=== PATIENT | male | born 2000 | race Caucasian/White ===

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

== ENCOUNTER 2021-08-27 21:06 | Emergency (ER) | payer BC, SELFPAY ==
[2021-08-27 21:07] VITALS: BP 125/76; PULSE 95; RESP 16; TEMP 37.2; O2SAT 100; BMI 23.0
--- NOTE | 2021-08-27 21:39 | XR_ITS ---
PROCEDURE INFORMATION: Exam: XR Chest Exam date and time: 08/27/2021 9:39 PM Age: 21 years old Clinical indication: Cough TECHNIQUE: Imaging protocol: XR of the chest. Views: 2 views. COMPARISON: CR XR SHOULDER RT MIN 2V 03/24/2019 7:44 PM FINDINGS: Lungs: Airspace opacity at the posteromedial left lung base. Pleural spaces: Unremarkable. No pleural effusion. No pneumothorax. Heart/Mediastinum: Unremarkable. No cardiomegaly. Bones/joints: Unremarkable. IMPRESSION: Airspace opacity at the left lung base.
--- NOTE | 2021-08-27 21:40 | CT_ITS ---
PROCEDURE INFORMATION: Exam: CT Abdomen And Pelvis Without Contrast Exam date and time: 08/27/2021 9:40 PM Age: 21 years old Clinical indication: Abdominal pain; Additional info: Back pain TECHNIQUE: Imaging protocol: Computed tomography of the abdomen and pelvis without contrast. Radiation optimization: All CT scans at this facility use at least one of these dose optimization techniques: automated exposure control; mA and/or kV adjustment per patient size (includes targeted exams where dose is matched to clinical indication); or iterative reconstruction. COMPARISON: CR XR CHEST 2V 08/27/2021 9:39 PM FINDINGS: Lungs: Patchy consolidation at the left lung base. Calcified granuloma at the right lung base. Liver: Parenchymal enhancement is not evaluated without contrast. No hepatomegaly. Gallbladder and bile ducts: No calcified stones. No ductal dilation. Pancreas: Parenchymal enhancement is not evaluated without contrast. No ductal dilation. Spleen: Parenchymal enhancement is not evaluated without contrast. No splenomegaly. Adrenal glands: No mass. Kidneys and ureters: Parenchymal enhancement is not evaluated without contrast. No hydronephrosis. Stomach and bowel: No obstruction. No mucosal thickening. Appendix: No evidence of appendicitis. Intraperitoneal space: No free air. No significant fluid collection. Vasculature: Limited evaluation without contrast. No abdominal aortic aneurysm. Lymph nodes: No enlarged lymph nodes. Urinary bladder: No acute abnormality. Reproductive: No acute abnormality. Bones/joints: No acute fracture. Soft tissues: Limited evaluation without contrast. No significant soft tissue swelling. IMPRESSION: Patchy consolidation at the left lung base which may be secondary to pneumonia. Consider continued follow-up to clearance to ensure resolution.
[2021-08-27 21:59] LABS: Microscopic, Urine URINE MICROSCOPIC (MICROSCOPIC)
[2021-08-27 21:59] LABS: Coronavirus 19, PCR Not Detected (NotDetected); Influenza A, PCR Not Detected (NotDetected); Influenza B, PCR Not Detected (NotDetected)
[2021-08-27 21:59] LABS: Basophils % 0.4 % (0.1-2.0); Hematocrit 48.7 % (42.0-52.0); Lymphocytes # 0.6 K/mm3 (0.7-4.5); Lymphocytes % 6.5 % (10-50); Mean Corpuscular HGB Conc 32.9 g/dL (31.8-35.4); Mean Corpuscular Hemoglobin 30.6 pg (27.0-31.2); Mean Platelet Volume 7.3 fl (7.4-10.4); Monocytes # 0.3 K/mm3 (0.1-1.0); Neutrophils # 8.4 K/mm3 (1.8-7.8); Neutrophils % 90.1 % (37.0-80.0); Platelet Count 220 K/mm3 (142-424); Red Blood Count 5.24 M/mm3 (4.60-6.20); Red Cell Distribution Width 14.1 % (11.5-17.5); White Blood Count 9.3 K/mm3 (4.8-10.8)
[2021-08-27 22:01] LABS: Appearance,Urine SL CLOUDY (Clear); Blood, Urine Negative (Negative); Color,Urine ORANGE (Yellow); Glucose,Urine (UA) Negative (Negative); Ketones,Urine Negative (Negative); Leukocyte Esterase,Urine Negative (Negative); Nitrate,Urine Negative (Negative); PH,Urine 6.5 (5.0-8.5); Protein,Urine 1+ (Negative); Specific Gravity, Urine 1.025 (1.005-1.030)
[2021-08-27 22:03] LABS: Bilirubin,Urine 2+ (Negative)
[2021-08-27 22:03] LABS: Amylase 36 U/L (30-110); Lipase 22 U/L (23-300); MANUAL DIFFERENTIAL MANUAL DIFFERENTIAL (MANUAL DIFF)
[2021-08-27 22:08] LABS: C-Reactive Protein 130.6 mg/L (0-4)
[2021-08-27 22:14] LABS: Bacteria,Urine 2+ /lpf; Mucus,Urine 4+ /lpf; Squamous Epithelial Cell,Urine Occasional #/hpf (0-5)
[2021-08-27 22:22] LABS: Procalcitonin 1.73 ng/mL (0.0-2.0)
--- NOTE | 2021-08-27 22:23 | CT_ITS ---
PROCEDURE INFORMATION: Exam: CTA Chest With Contrast Exam date and time: 08/27/2021 10:23 PM Age: 21 years old Clinical indication: Other: Coughing blood TECHNIQUE: Imaging protocol: Computed tomographic angiography of the chest with contrast. 3D rendering (Not supervised by radiologist): MIP and/or 3D reconstructed images were created by the technologist. Radiation optimization: All CT scans at this facility use at least one of these dose optimization techniques: automated exposure control; mA and/or kV adjustment per patient size (includes targeted exams where dose is matched to clinical indication); or iterative reconstruction. Contrast material: ISOVUE; Contrast volume: 70 ml; Contrast route: INTRAVENOUS (IV); COMPARISON: CR XR CHEST 2V 08/27/2021 9:39 PM FINDINGS: Pulmonary arteries: Normal. No pulmonary emboli. Aorta: No aortic aneurysm. No aortic dissection. Lungs: Mild apical emphysema. Debris within lower lobe bronchials bilateral with ground-glass nodular airspace opacities and more confluent rounded opacities within left upper and lower lobes. Pleural spaces: No pneumothorax. No pleural effusion. Heart: No cardiomegaly. No pericardial effusion. Lymph nodes: Partially calcified hilar lymph nodes which can be seen with prior granulomatous disease. Bones/joints: No acute fracture. Soft tissues: No significant swelling. IMPRESSION: Debris within lower lobe bronchials with bilateral ground-glass nodular airspace opacities and more confluent rounded opacities within left upper and lower lobes which are nonspecific but potentially infectious or inflammatory would be compatible with provided history of hemorrhage. Follow-up to radiographic clearance is recommended.
--- NOTE | 2021-08-27 22:23 | HMH.EDSOB ---
ED Disposition Clinical Impression: CAP (community acquired pneumonia) Qualifiers: Laterality: left Lung location: lower lobe of lung Qualified Code(s): J18.9 - Pneumonia, unspecified organism Disposition: Home, Self-Care Condition on Discharge: Good Instructions: DI for Pneumonia -- Adult Additional Instructions: use meds and see pcp and produce sorter Prescriptions: levoFLOXacin [Levaquin 500mg tab] 500 mg PO DAILY #7 tab Transmission Status: Pending to [id number] [place] [facility] predniSONE [Prednisone 20mg Tab] 20 mg PO BID #10 tab Transmission Status: Pending to [id number] [place] [facility] Referrals: Alvaro Joshua MD [Primary Care Provider] - Tip Ramos MD [Physician] - - Critical Care Critical Care Time: No Attestation: On 08/27/21, the high probability of a clinically significant, sudden or life threatening deterioration of the following system(s) required my full and direct attention, intervention and personal management. The time I documented below is in addition to time spent performing reported procedures but includes the following listed in this critical care notation. Medical Decision Making - Medical Records Medical records reviewed: Yes: I reviewed the patient's medical records. - Ankit Inquiry Pt receiving controlled substance: No Vital Signs: 08/27/21 21:07 Temperature 98.9 F Temperature Source Oral Pulse Rate [Left] 95 H Respiratory Rate 16 Blood Pressure [Right Arm] 125/76 Blood Pressure Mean [Right Arm] 92 02 Sat by Pulse Oximetry 100 Oxygen Delivery Method Room Air - Lab Data Lab results reviewed: Yes: I reviewed the patient's lab results. Lab Results 08/27/21 21:14: SARS-CoV-2 (PCR) Not detected, Influenza A Untype (PCR) Not detected, Influenza Type B (PCR) Not detected 08/27/21 21:17: Urine Color [place], Urine Appearance Sl cloudy, Urine pH 6.5, Ur Specific [place] 1.025, Urine Protein 1+, Urine Glucose (UA) Negative, Urine Ketones Negative, Urine Blood Negative, Urine Nitrate Negative, Urine Bilirubin 2+ A, Urine Urobilinogen 1.0, Ur Leukocyte Esterase Negative, Urine WBC 3-5, Ur Squamous Epith Cells Occasional, Urine Bacteria 2+, Urine Mucus 4+ 08/27/21 21:19: WBC 9.3, RBC 5.24, Hgb 16.0, Hct 48.7, MCV 93.0, MCH 30.6, MCHC 32.9, RDW 14.1, Plt Count 220, MPV 7.3 L, Neut % (Auto) 90.1 H, Lymph % (Auto) 6.5 L, Real % (Auto) 3.0, Eos % (Auto) 0.0 L, Baso % (Auto) 0.4, Neut # (Auto) 8.4 H, Lymph # (Auto) 0.6 L, Real # (Auto) 0.3, Eos # (Auto) 0.0, Baso # (Auto) 0.0, Total Counted 100, Neutrophils % (Manual) 59, Band Neutrophils % 26.0 H, Lymphocytes % (Manual) 13, Monocytes % (Manual) 2, Platelet Estimate Normal, RBC Morphology Normal, ESR 9 08/27/21 21:19: C-Reactive Protein 130.6 H, Amylase 36, Lipase 22 L, Procalcitonin 1.73 08/27/21 21:19: Sodium 137, Potassium 4.0, Chloride 100, Carbon Dioxide 29, Anion Gap 12.0, BUN 12, Creatinine 0.80, Estimated Creat Clear 153, Estimated GFR 121, Est GFR ( Amer) 146, Glucose 114 H, Calcium 9.6, Total Bilirubin 1.3, AST 28, ALT 31, Alkaline Phosphatase 30 L, Total Protein 7.5, Albumin 4.6, Globulin 2.9, Albumin/Globulin Ratio 1.6 Result diagrams: 08/27/21 21:19 08/27/21 21:19 Orders (Tests/Meds): ED MEDICATIONS Generic Name Dose Route Start Last Admin Trade Name Freq PRN Reason Stop Dose Admin Sodium Chloride 1,000 mls @ 999 mls/hr 08/27/21 21:45 08/27/21 21:47 Sod Chlor 0.9% 1000ml Bag IV 08/27/21 22:45 999 mls/hr .Q1H1M MIRIAM Administration Ceftriaxone Sodium 1 gm/ 50 mls @ 100 mls/hr 08/27/21 23:30 Sodium Chloride IV 09/10/21 23:29 Q24H MIRIAM Discontinued Medications Generic Name Dose Route Start Last Admin Trade Name Freq PRN Reason Stop Dose Admin Iopamidol 70 ml 08/27/21 22:42 08/27/21 22:43 Iopamidol-370 (76%);100ml Bottle IV 08/27/21 22:43 70 ml ONCE ONE Administration Ketorolac Tromethamine 30 mg 08/27/21 21:40 08/27/21 21:47 Ketorolac 30mg/Ml
[2021-08-27 22:29] LABS: Erythrocyte Sedimentation Rate 9 mm/hr (0-15)
[2021-08-27 22:32] LABS: Chloride 100 mmol/L (98-107); Sodium 137 mmol/L (136-145)
[2021-08-27 22:34] LABS: Blood Urea Nitrogen 12 mg/dl (9-20); Creatinine Clearance Estimated 153 mL/min (50-200); Estimated Glomerular Filt Rate 121 ml/min (>60); GFR (African American) 146 ML/MIN (>60); Lymphocytes % 13 % (10-50); Monocytes % 2 % (2-9); Neutrophils % 59 % (42-76); Platelet Estimate Normal; RBC Morphology Normal; Total Cells Counted 100
[2021-08-27 22:35] LABS: Alanine Aminotransferase 31 U/L (12-78); Albumin Level 4.6 g/dl (3.5-5.0); Albumin/Globulin Ratio 1.6 (1.1-1.8); Alkaline Phosphatase 30 U/L (38-126); Aspartate Amino Transferase 28 U/L (17-59); Bilirubin,Total 1.3 mg/dl (0.2-1.3); Calcium 9.6 mg/dl (8.4-10.2); Carbon Dioxide 29 mmol/L (22.0-30.0); Globulin 2.9 g/dL (1.3-3.2); Glucose 114 mg/dl (74-100); Total Protein,Serum 7.5 g/dl (6.3-8.2)
[2021-08-27 23:30] VITALS: BP 110/75; PULSE 115; RESP 20; TEMP 37.2; O2SAT 99
== END 2021-08-27 23:40 | disposition home or self-care (01) ==
PROVIDERS: Emergency Provider Emergency Medicine; PCP Internal Medicine Adolescent Medicine
DX: J18.9 Pneumonia, unspecified organism (principal)
CPT/HCPCS: 71046; 71275; 74176; 80053; 81001; 82150; 83690; 84145; 85007; 85025; 85651; 86140; 87086; 96365; 96375; 99283; C9803; J0696; J2405; Q9967; U0003; U0005

== ENCOUNTER 2023-04-07 08:01 | Emergency (ER) | payer BC, SELFPAY ==
[2023-04-07 08:10] VITALS: BP 128/79; PULSE 66; RESP 18; TEMP 36.6; O2SAT 99; BMI 24.3
--- NOTE | 2023-04-07 08:13 | XR_ITS ---
FINAL REPORT CLINICAL HISTORY: pain FINDINGS: Left ankle Three views were obtained. There is no acute fracture or dislocation. The joint spaces appear normal. There is soft tissue swelling about the ankle. There is a small well corticated ossific density inferior to the lateral malleolus. IMPRESSION: No acute process. Reviewed, Interpreted and Dictated by Faraz Angel MD Transcribed by Laurie Aguilar Authenticated and [facility]
--- NOTE | 2023-04-07 08:13 | XR_ITS ---
FINAL REPORT CLINICAL HISTORY: pain FINDINGS: Left foot Three views were obtained. There is no acute fracture or dislocation. The joint spaces appear normal. No soft tissue abnormality is identified. IMPRESSION: No acute process. Reviewed, Interpreted and Dictated by Faraz Angel MD Transcribed by Laurie Aguilar Authenticated and [facility]
--- NOTE | 2023-04-07 08:24 | EXP.UTC ---
Discharge Plan Disposition Patient Disposition: Home, Self-Care Condition: Good Prescriptions Prescriptions: New ibuprofen [IBU] 800 mg tablet 800 mg PO Q8HP PRN (Reason: Moderate Pain) Qty: 30 0RF Referrals Follow up/Referrals: Alvaro Joshua MD [Primary Care Provider] - See instructions Activity Restrictions/Add. Instructions Additional Instructions/Restrictions: Rest the extremity, Elevate the extremity as tolerated while you are resting. Take ibuprofen for pain. I sent in a prescription to your pharmacy. Follow up with Dr. Moore (podiatry). I put in a referral but you need to call her office and schedule an appointment. Follow up with your regular doctor. GO TO THE ER FOR ANY WORSENING SYMPTOMS Clinical Impressions Clinical Impression: Left ankle tendonitis, Ankle pain, left Stand Alone Forms Stand Alone Forms: Work/School Release Instructions Patient Instructions: DI for Ankle Pain, DI for Foot Pain Discharge ED Provider: Mehdi Vargas [facility] General Stated complaint: left ankle pain, no accident Mode of Arrival: Ambulatory Source of Information: Patient Limitations: No Limitations Time Seen by Provider: 04/07/23 08:24 Description of Symptoms (Recalled from Triage Doc. by RN): PATIENT C/O SWELLING AND PAIN TO LEFT HEEL AREA AND ANKLE X 1 WEEK, NO KNOWN INJURY HEENT Symptoms (Recalled from RN notes): No Resp Symptoms (Recalled from RN notes): No Skin Symptoms (Recalled from RN notes): No MS Symptoms (Recalled from RN notes): Yes Functional Status (Recalled from RN notes): WNL History of Present Illness Provider Complaint: He states that for the past 1 week he has had left ankle pain. He denies any injury. He states that walking on the foot makes his symptoms worse. Related Data Previous Rx's Medication Instructions Recorded ibuprofen 800 mg tablet (IBU) 800 mg PO Q8HP PRN Moderate Pain 04/07/23 #30 tabs Allergies Allergy/AdvReac Type Severity Reaction Status Date / Time No Known Allergies Allergy Verified 08/31/21 15:29 Worker's Comp Is this a Worker's Comp case?: No [facility] Disclaimer: The information contained in this section may have been updated after the patient was seen, as this information can be updated by other users. Medical History (Updated 04/07/23 @ 08:57 by Mehdi Vargas APRN) No significant past medical history Social History Smoking Status: Never smoker alcohol intake: never current occupational status: employed Travel in the last 8 weeks: None ROS Obtained: Yes All systems reviewed & no additional complaints except as documented Constitutional Constitutional: Denies chills and Denies fever(s) Eyes Eyes: Denies eye discharge ENT Ears, Nose, Mouth, and Throat: Denies dizziness, Denies otalgia and Denies sore throat Cardiovascular Cardiovascular: Denies chest pain Respiratory Respiratory: Denies shortness of breath, Denies chest congestion, Denies cough, Denies stridor and Denies wheezing Gastrointestinal Gastrointestingal: Denies nausea or vomiting Musculoskeletal Musculoskeletal: Reports as per HPI Integumentary/Breasts Skin/Breast: Denies rash Neurologic Neurologic: Denies dizziness and Denies paresthesias Allergic/Immunologic Allergic/Immunologic: Denies wheezing Physical Exam General General appearance: alert and in no apparent distress Head Head exam: atraumatic, normocephalic and normal inspection Eye Eye exam: Present normal appearance, PERRL and EOMI ENT ENT exam: Present normal exam, normal oropharynx, mucous membranes moist, TM's normal bilaterally and normal external ear exam Neck Neck exam: Present normal inspection, full ROM and trachea midline; Absent meningismus or lymphadenopathy Chest Chest inspection: Present normal inspection and symmetric chest wall rise; Absent tenderness Respiratory Respiratory exam: Present normal lung sounds bilaterally; Abs
[2023-04-07 08:59] VITALS: BP 128/79; PULSE 66; RESP 18; TEMP 36.6; O2SAT 99
== END 2023-04-07 09:01 | disposition home or self-care (01) ==
PROVIDERS: Emergency Provider Nurse Practitioner Family; PCP Internal Medicine Adolescent Medicine
DX: M77.52 Other enthesopathy of left foot and ankle (principal); M25.572 Pain in left ankle and joints of left foot
CPT/HCPCS: 73610; 73630; 99204; 99212; 99214; G0463

== ENCOUNTER 2024-06-09 15:52 | Emergency (ER) | payer BC, SELFPAY ==
--- NOTE | 2024-06-09 15:58 | XR_ITS ---
PROCEDURE INFORMATION: Exam: XR Left Wrist Exam date and time: 06/09/2024 4:41 PM Age: 23 years old Clinical indication: Injury or trauma; Fall; Blunt trauma (contusions or hematomas); Wrist; Left; Additional info: Fell off a ladder TECHNIQUE: Imaging protocol: Radiologic exam of the left wrist. Views: 3 or more views. Frontal Oblique Lateral COMPARISON: CR XR HAND LT MIN 3V 06/09/2024 4:40 PM FINDINGS: Bones/joints: Comminuted fractures are identified within the distal metadiaphysis of the left radius. Fractures do not clearly involve the distal articular surface. Distal radius fragment demonstrates anterior bony displacement measuring 5 mm. Adjacent edema. Fracture is identified within the ulnar styloid. Bony displacement measures 2 mm. Mild adjacent edema. Bony structures appear otherwise unremarkable. Soft tissues: Soft tissue edema surrounds the distal forearm and left wrist region. The soft tissues appear otherwise unremarkable. Notes: If there is further concern, followup radiographs or MRI of the wrist may be performed for complete assessment. IMPRESSION: 1. Comminuted fractures involving the distal radius, as described above. 2. Fracture involving the ulnar styloid, as described above. 3. Soft tissue edema.
--- NOTE | 2024-06-09 15:58 | XR_ITS ---
PROCEDURE INFORMATION: Exam: XR Left Elbow Exam date and time: 06/09/2024 4:54 PM Age: 23 years old Clinical indication: Injury or trauma; Fall; Blunt trauma (contusions or hematomas); Elbow; Left; Additional info: Fell off a ladder TECHNIQUE: Imaging protocol: Radiologic exam of the left elbow. Views: 3 or more views. AP Oblique Lateral COMPARISON: CR XR FOREARM LT 2V 06/09/2024 4:54 PM FINDINGS: Bones/joints: Limited assessment of the elbow on the lateral view with oblique positioning. This limits assessment for potential fracture, joint effusion. No visualized evidence for acute bony fracture or dislocation. Bony structures appear otherwise unremarkable. Soft tissues: The soft tissue appear unremarkable. Notes: If there is further concern, recommend follow-up radiographs or MRI for complete assessment. IMPRESSION: No acute abnormality identified.
--- NOTE | 2024-06-09 15:58 | XR_ITS ---
PROCEDURE INFORMATION: Exam: XR Left Forearm Exam date and time: 06/09/2024 4:54 PM Age: 23 years old Clinical indication: Injury or trauma; Fall; Blunt trauma (contusions or hematomas); Arm, lower; Left; Additional info: Fell off a ladder TECHNIQUE: Imaging protocol: Radiologic exam of the left forearm. Views: 2 views. Frontal and lateral COMPARISON: CR XR WRIST LT MIN 3V 06/09/2024 4:41 PM FINDINGS: Bones/joints: Comminuted fractures are identified within the distal radius metadiaphysis. Bony displacement measures up to 5 mm. Adjacent edema. No definite involvement of the distal articular surface. Fracture is identified within the ulnar styloid. Bony displacement measures 2-3 mm. Mild adjacent edema. Bony structures appear otherwise unremarkable. Soft tissues: The soft tissues appear otherwise unremarkable. Notes: If there is further concern, recommend follow-up radiographs for complete assessment. IMPRESSION: 1. Comminuted fractures involving the distal radius, as described above. 2. Fracture involving the ulnar styloid, as described above.
--- NOTE | 2024-06-09 15:58 | XR_ITS ---
PROCEDURE INFORMATION: Exam: XR Left Hand Exam date and time: 06/09/2024 4:40 PM Age: 23 years old Clinical indication: Injury or trauma; Fall; Blunt trauma (contusions or hematomas); Hand; Left; Additional info: Fell off a ladder TECHNIQUE: Imaging protocol: Radiologic exam of the left hand. Views: 3 or more views. Frontal Oblique Lateral COMPARISON: No relevant prior studies available. FINDINGS: Bones/joints: Comminuted fractures are identified within the distal metadiaphysis of the left radius. Fractures do not clearly involve the distal articular surface. Distal radius fragment demonstrates anterior bony displacement measuring 5 mm. Adjacent edema. Fracture is identified within the ulnar styloid. Bony displacement measures 2 mm. Mild adjacent edema. Bony structures appear otherwise unremarkable. Soft tissues: Soft tissue edema surrounds the distal forearm and left wrist region. The soft tissues appear otherwise unremarkable. Notes: If there is further concern, recommend follow-up radiographs or MRI for complete assessment. IMPRESSION: 1. Comminuted fractures involving the distal radius, as described above. 2. Fracture involving the ulnar styloid, as described above. 3. Soft tissue edema.
[2024-06-09 16:04] VITALS: BP 124/70; PULSE 64; RESP 18; TEMP 36.7; O2SAT 100; BMI 25.8
[2024-06-09] MEDS: IBUPROFEN 800 MG TABLET PO (16:14)
--- NOTE | 2024-06-09 18:27 | ED_ITS ---
Discharge Plan Disposition Patient Disposition: Home, Self-Care Condition: Good Prescriptions Prescriptions: New ibuprofen 800 mg tablet 800 mg PO TID Qty: 30 0RF Referrals Follow up/Referrals: Alvaro Joshua MD [Primary Care Provider] - See instructions Activity Restrictions/Add. Instructions Additional Instructions/Restrictions: Follow up with Dr. Kingsley on Tuesday [phone]. Keep arm in sling. Use ice pack to assist with pain/swelling. Wear sling. Do not remove splint. Move fingers frequently. Watch for swelling. Clinical Impressions Clinical Impression: Left wrist fracture Qualifiers: Encounter type: initial encounter Fracture type: closed Qualified Code(s): S 62.102A - Fracture of unspecified carpal bone, left wrist, initial encounter for closed fracture Stand Alone Forms Stand Alone Forms: Work/School Release Instructions Patient Instructions: DI for Wrist Fracture, How To Perform RICE (Rest, Ice, Compress, Elevate), How to Take Care of Your Splint Print Language Print Language: Tamazight Discharge ED Provider: Lynne Sena [facility] General Stated complaint: fell off ladder ao L wrist pain Mode of Arrival: Ambulatory Source of Information: Patient Time Seen by Provider: 06/09/24 17:01 Description of Symptoms (Recalled from Triage Doc. by RN): FELL OFF OF 10FT LADDER ONTO LEFT ARM AND WRIST, KNOT NOTICIED ON WRIST AREA, CAN MOVE FINGERS HEENT Symptoms (Recalled from RN notes): No Resp Symptoms (Recalled from RN notes): No Skin Symptoms (Recalled from RN notes): No MS Symptoms (Recalled from RN notes): Yes Functional Status (Recalled from RN notes): UNABLE TO BEND LEFT WRIST History of Present Illness Provider Complaint: FELL OFF OF 10FT LADDER ONTO LEFT ARM AND WRIST, KNOT NOTICIED ON WRIST AREA, CAN MOVE FINGERS . UNABLE TO MOVE WRIST. HAS NOT TAKEN ANYTHING FOR PAIN. Related Data Previous Rx's ?Medication ?Instructions ?Recorded ibuprofen 800 mg tablet 800 mg PO TID #30 tabs 06/09/24 Allergies Allergy/AdvReac Type Severity Reaction Status Date / Time No Known Allergies Allergy Verified 08/31/21 15:29 Worker's Comp Is this a Worker's Comp case?: No [facility] Disclaimer: The information contained in this section may have been updated after the patient was seen, as this information can be updated by other users. Medical History (Updated 06/09/24 @ 18:34 by Ceci Guy APRN) No significant past medical history Social History Smoking Status: Never smoker alcohol intake: never current occupational status: employed Travel in the last 8 weeks: None ROS Obtained: Yes All systems reviewed & no additional complaints except as documented Constitutional Constitutional: Reports system reviewed and no additional complaints, except as documented Eyes Eyes: Reports system reviewed and no additional complaints, except as documented ENT Ears, Nose, Mouth, and Throat: Reports system reviewed and no additional complaints, except as documented Cardiovascular Cardiovascular: Reports system reviewed and no additional complaints, except as documented Respiratory Respiratory: Reports system reviewed and no additional complaints, except as documented Gastrointestinal Gastrointestingal: Reports system reviewed and no additional complaints, except as documented Genitourinary Male Genitourinary: Reports system reviewed and no additional complaints, except as documented Musculoskeletal Musculoskeletal: Reports system reviewed and no additional complaints, except as documented, Reports arthralgias, Reports joint swelling, Reports limited range of motion and Reports radiating pain into limb Integumentary/Breasts Skin/Breast: Reports system reviewed and no additional complaints, except as documented Neurologic Neurologic: Reports system reviewed and no additional complaints, except as documented Endocrine Endocrine: Reports system reviewed and no additional complaints, except as documented Hematologic/Lymphatic Henatologic/Lymphatic: Reports system reviewed and no additional complaints, except as documented Allergic/Immunologic Allergic/Immunologic: Reports system reviewed and no additional complaints, except as documented Physical Exam General General appearance: alert and in no apparent distress Head Head exam: atraumatic and normocephalic Eye Eye exam: Present normal appearance ENT ENT exam: Present normal exam and normal oropharynx Neck Neck exam: Present normal inspection Chest Chest inspection: Present normal inspection and symmetric chest wall rise Respiratory Respiratory exam: Present normal lung sounds bilaterally Cardiovascular Cardiovascular exam: Present regular rate and normal rhythm Abdominal Exam Abdominal exam: Present soft and normal bowel sounds Expanded Upper Extremity Exam Left: Shoulder exam: Present normal inspection Arm exam: Present tenderness Elbow exam: Present normal inspection Forearm/Wrist exam: Present tenderness, swelling, deformity and dislocation Hand exam: Present tenderness and swelling Hand L/R back image: 2 1. swelling noted Vascular exam: Normal capillary refill, radial pulse and ulnar pulse Back Exam Back exam: Present normal inspection Neurological Exam Neurological exam: Present alert and oriented X3 Psychiatric Psychiatric exam: Present normal affect and normal mood Skin Skin exam: Present warm, dry and intact Lymphatic Lymphatic Findings: no adenopathy Medical Decision Making Medical Records Screening: Per USPSTF and CDC recommendations, given the prevalence of disease in our region, it is our hospital?s policy to screen for HIV and viral Hepatitis for all patients aged 18 and over and those with ongoing risk factors. Ankit Inquiry Pt receiving controlled substance: No Ankit was queried for this patient: No Vital Signs: 06/09/24 16:04 Temperature 98.1 F Temperature Source Oral Pulse Rate [Left Radial] 64 Respiratory Rate 18 Blood Pressure [Left Arm] 124/70 Blood Pressure Mean [Left Arm] 88 02 Sat by Pulse Oximetry 100 Orders (Tests/Meds): ED MEDICATIONS Generic Name Dose Route Start Last Admin Trade Name Freq PRN Reason Stop Dose Admin Ibuprofen 800 mg 06/09/24 16:09 06/09/24 16:14 Ibuprofen 800 Mg Tablet PO 06/09/24 16:10 800 mg ONCE ONE Administration ORDERS Category Date Time Status Elbow XR left mininum 3 views [XR elbow LT min 3V] Stat Exams 06/09/24 15:58 Completed XR forearm LT 2V Stat Exams 06/09/24 15:58 Completed XR hand LT min 3V Stat Exams 06/09/24 15:58 Completed XR wrist LT min 3V Stat Exams 06/09/24 15:58 Completed Radiology Data #1: Image(s): Wrist Image Reviewed: Yes I reviewed the patient's radiology results and Yes I have reviewed radiologist's interpretation FINDINGS: Bones/joints: Comminuted fractures are identified within the distal metadiaphysis of the left radius. Fractures do not clearly involve the distal articular surface. Distal radius fragment demonstrates anterior bony displacement measuring 5 mm. Adjacent edema. Fracture is identified within the ulnar styloid. Bony displacement measures 2 mm. Mild adjacent edema. Bony structures appear otherwise unremarkable. Soft tissues: Soft tissue edema surrounds the distal forearm and left wrist region. The soft tissues appear otherwise unremarkable. Notes: If there is further concern, followup radiographs or MRI of the wrist may be performed for complete assessment. IMPRESSION: 1. Comminuted fractures involving the distal radius, as described above. 2. Fracture involving the ulnar styloid, as described above. 3. Soft tissue edema. #2: Image(s): Hand Image Reviewed: Yes I reviewed the patient's radiology results and Yes I have reviewed radiologist's interpretation FINDINGS: Bones/joints: Comminuted fractures are identified within the distal metadiaphysis of the left radius. Fractures do not clearly involve the distal articular surface. Distal radius fragment demonstrates anterior bony displacement measuring 5 mm. Adjacent edema. Fracture is identified within the ulnar styloid. Bony displacement measures 2 mm. Mild adjacent edema. Bony structures appear otherwise unremarkable. Soft tissues: Soft tissue edema surrounds the distal forearm and left wrist region. The soft tissues appear otherwise unremarkable. Notes: If there is further concern, recommend follow-up radiographs or MRI for complete assessment. IMPRESSION: 1. Comminuted fractures involving the distal radius, as described above. 2. Fracture involving the ulnar styloid, as described above. 3. Soft tissue edema. #3: Image(s): Elbow and Forearm Image Reviewed: Yes I reviewed the patient's radiology results and Yes I have reviewed radiologist's interpretation Forearm: FINDINGS: Bones/joints: Comminuted fractures are identified within the distal radius metadiaphysis. Bony displacement measures up to 5 mm. Adjacent edema. No definite involvement of the distal articular surface. Fracture is identified within the ulnar styloid. Bony displacement measures 2-3 mm. Mild adjacent edema. Bony structures appear otherwise unremarkable. Soft tissues: The soft tissues appear otherwise unremarkable. Notes: If there is further concern, recommend follow-up radiographs for complete assessment. IMPRESSION: 1. Comminuted fractures involving the distal radius, as described above. 2. Fracture involving the ulnar styloid, as described above. Elbow: FINDINGS: Bones/joints: Limited assessment of the elbow on the lateral view with oblique positioning. This limits assessment for potential fracture, joint effusion. No visualized evidence for acute bony fracture or dislocation. Bony structures appear otherwise unremarkable. Soft tissues: The soft tissue appear unremarkable. Notes: If there is further concern, recommend follow-up radiographs or MRI for complete assessment. IMPRESSION: No acute abnormality identified. Procedures Orthopedic Splinting/Casting Injury #1: Side: left Upper Extremity Injury Location: wrist Upper Extremity Immobilizer: sugar tong splint, sling and applied by nurse/dr haywood Post Cast/Splinting Neuro Status: intact Post Cast/Splinting Vasc Status: intact Miscellaneous Procedure Procedure Performed: Discussed x-ray results with Dr. Kingsley. He wanted pt to have a sugar tong splint with sling.
[2024-06-09 18:36] VITALS: BP 124/70; PULSE 64; RESP 18; TEMP 36.7
== END 2024-06-09 18:40 | disposition home or self-care (01) ==
PROVIDERS: Emergency Provider Student in an Organized Health Care Education/Training Program; PCP Internal Medicine Adolescent Medicine
DX: S62.102A Fracture of unspecified carpal bone, left wrist, initial encounter for closed fracture (principal); W11.XXXA Fall on and from ladder, initial encounter
CPT/HCPCS: 29105; 73080; 73090; 73110; 73130; 99214; G0382

== ENCOUNTER 2024-06-15 06:31 | Outpatient (CLI) | payer BC, SELFPAY ==
--- NOTE | 2024-06-15 06:35 | CT_ITS ---
FINAL REPORT TECHNIQUE: Thin section axial CT images with coronal and sagittal reformats were performed. This study was performed with techniques to keep radiation doses as low as reasonably achievable (ALARA). Individualized dose reduction techniques using automated exposure control or adjustment of mA and/or kV according to the patient's size were employed. CLINICAL HISTORY: left wrist fx COMPARISON: None FINDINGS: CT LEFT WRIST: CT examination of the left wrist was performed from the mid forearm to the proximal left fingers. The images show a comminuted mildly impacted fracture of the distal radial metaphysis. The fracture lines do not extend to the distal radial articular surface. There is a fracture of the tip of the ulnar styloid process present as well. The carpal and metacarpal bones are intact without a fracture visualized. Diffuse soft tissue swelling is present surrounding the wrist. IMPRESSION: Comminuted mildly impacted fracture of the distal radial metaphysis that does not extend to the distal radial articular surface. Fracture tip of the ulnar styloid process. Reviewed, Interpreted and Dictated by Alvin Menendez III, MD Transcribed by Norma Loredo Authenticated and [facility]
== END 2024-06-15 23:59 | disposition home or self-care (01) ==
LOC: RAD 06:32
PROVIDERS: PCP Internal Medicine Adolescent Medicine; Visit Provider Physician Assistant Surgical
DX: S62.102A Fracture of unspecified carpal bone, left wrist, initial encounter for closed fracture (principal)
CPT/HCPCS: 73200

== ENCOUNTER 2024-07-09 14:03 | Outpatient (CLI) | payer BC, SELFPAY ==
--- NOTE | 2024-07-09 14:07 | XR_ITS ---
FINAL REPORT CLINICAL HISTORY: Left wrist fx FINDINGS: LEFT WRIST Three views demonstrate a subacute, comminuted and impacted fracture of the distal radius with callus formation at the fracture site. There is also a fracture of the ulnar styloid. No other fracture is identified. IMPRESSION: Healing, subacute fracture of the distal radius. Reviewed, Interpreted and Dictated by Alvin Menendez III, MD Transcribed by Lucinda Cortes Authenticated and [facility]
== END 2024-07-09 23:59 | disposition home or self-care (01) ==
LOC: RAD 14:04
PROVIDERS: PCP Internal Medicine Adolescent Medicine; Visit Provider Physician Assistant
DX: S62.102A Fracture of unspecified carpal bone, left wrist, initial encounter for closed fracture (principal)
CPT/HCPCS: 73110

== ENCOUNTER 2024-08-06 08:46 | Outpatient (CLI) | payer BC, SELFPAY ==
--- NOTE | 2024-08-06 08:52 | XR_ITS ---
FINAL REPORT CLINICAL HISTORY: Left Wrist Fx in June COMPARISON: 07/09/2024 FINDINGS: AP, oblique, and lateral views of the left wrist were obtained. There has been interval healing of the previously seen distal radius fracture. The displaced ulnar styloid fracture is stable. There is no new osseous abnormality. There is no evidence of dislocation. The joint spaces are preserved. No acute soft tissue abnormality seen. IMPRESSION: Interval healing distal radius fracture with stable ulnar styloid fracture. Reviewed, Interpreted and Dictated by Angela Umaña MD Transcribed by Karishma Rodriguez Authenticated and . [facility]
== END 2024-08-06 23:59 | disposition home or self-care (01) ==
PROVIDERS: PCP Internal Medicine Adolescent Medicine; Visit Provider Physician Assistant
DX: M25.532 Pain in left wrist (principal); S62.102A Fracture of unspecified carpal bone, left wrist, initial encounter for closed fracture
CPT/HCPCS: 73110

== ENCOUNTER 2024-09-03 08:24 | Outpatient (CLI) | payer BC, SELFPAY ==
--- NOTE | 2024-09-03 08:28 | XR_ITS ---
FINAL REPORT CLINICAL HISTORY: Left Wrist Fx COMPARISON: 08/06/2024 FINDINGS: LEFT WRIST Three views demonstrate fracture deformity of the distal left radial metaphysis, stable when compared to the prior examination. There is also an avulsed 4 mm fragment adjacent to the radial styloid process. The visualized joint spaces are normally aligned. The soft tissues are unremarkable. IMPRESSION: Fracture deformity of the distal left radial metaphysis, stable when compared to the prior examination of 08/06/2024. Reviewed, Interpreted and Dictated by Faraz Angel MD Transcribed by Norma Loredo Authenticated and [facility]
== END 2024-09-03 23:59 | disposition home or self-care (01) ==
LOC: RAD 08:26
PROVIDERS: PCP Internal Medicine Adolescent Medicine; Visit Provider Physician Assistant
DX: S62.102A Fracture of unspecified carpal bone, left wrist, initial encounter for closed fracture (principal)
CPT/HCPCS: 73110